=== PATIENT | female | born 1965 | race Caucasian/White ===

== ENCOUNTER 2020-12-07 12:54 | Emergency (ER) | payer OTHER ==
[~2020-12-07] VITALS: Ht 167.6 cm; Wt 102.1 kg
== END 2020-12-07 15:24 | disposition home or self-care (01) ==
LOC: ER 13:12
DX: U07.1 COVID-19 (principal); R06.02 Shortness of breath; R50.9 Fever, unspecified; R05 Cough; E78.5 Hyperlipidemia, unspecified
CPT/HCPCS: 71045; 99282

== ENCOUNTER 2023-10-17 11:12 | Inpatient (IN) | payer OTHER ==
[~2023-10-17] VITALS: Ht 167.6 cm; Wt 102.1 kg
[2023-10-17] MEDS ORDERED: PROPOFOL IV EMULSION 10 MG/ML 20 ML VIAL ONE (12:05)
[2023-10-17] MEDS ORDERED: ONDANSETRON HCL INJ 2MG/ML 2ML 2 MG/ML VIAL ONE (12:05)
[2023-10-17] MEDS ORDERED: SEVOFLURANE INHAL SOLN 250 ML PEN BTL ONE (12:05)
[2023-10-17] MEDS ORDERED: KETOROLAC TROMETHAMINE 30 MG/ML VIAL ONE (12:05)
[2023-10-17] MEDS ORDERED: SUCCINYLCHOLINE CHLORIDE 20 MG/ML 10ML VIAL ONE (12:05)
[2023-10-17] MEDS ORDERED: ROCURONIUM BROMIDE 10 MG/ML 5ML VIAL IV ONE (12:05)
[2023-10-17] MEDS ORDERED: LIDOCAINE HCL 2% LOCAL INJ 5 ML SDV VIAL INJ ONE (12:05)
[2023-10-17] MEDS ORDERED: SODIUM CHLORIDE FLUSH 10 ML SYR IV PRN (12:45)
[2023-10-17 12:57] LABS: BASOPHILS # (AUTO) 0.1 (0.0-0.1); BASOPHILS % 0.3 % (0.0-1.0); EOSINOPHILS # (AUTO) 0.1 (0.0-0.4); EOSINOPHILS % 0.3 % (0.0-6.0); HEMATOCRIT 41.1 % (34.2-44.1); HEMOGLOBIN 13.7 g/dL (12.0-16.0); LYMPHOCYTES # (AUTO) 2.2 (1.0-3.2); LYMPHOCYTES % 12.5 % (18.0-39.1); MEAN CORPUSCULAR HEMOGLOBIN 30.2 pg (28-32); MEAN CORPUSCULAR HGB CONC 33.3 g/dL (31-35); MEAN CORPUSCULAR VOLUME 90.7 fL (81-99); MONOCYTES # (AUTO) 1.4 (0.2-0.8); MONOCYTES % 7.8 % (4.4-11.3); NEUTROPHILS % 78.7 % (38.7-80.0); PLATELET COUNT 293 x10e3/uL (140-360); RED BLOOD COUNT 4.53 x10e6/uL (3.6-5.1); RED CELL DISTRIBUTION WIDTH 12.2 % (11.7-14.4); WHITE BLOOD COUNT 17.79 x10e3/uL (4.8-10.8)
[2023-10-17] MEDS ORDERED: SODIUM CHLORIDE 0.9% 1000ML 1,000 ML IV STA (13:03)
[2023-10-17] MEDS ORDERED: ACETAMINOPHEN 1000 MG/100 ML IV STA (13:03)
[2023-10-17] MEDS ORDERED: IOPAMIDOL 370 MG/ML 100 ML INFUS..BTL INJ ONE (13:07)
[2023-10-17 13:10] LABS: ALBUMIN 3.3 g/dL (3.5-5.0); ALBUMIN/GLOBULIN RATIO 0.8 (0.8-2.0); ANION GAP 15.3 mmol/L (8-16); BILIRUBIN,TOTAL 1.3 mg/dL (0.2-1.2); CALCIUM 9.5 mg/dL (8.4-10.2); CREATININE, SERUM 0.81 mg/dL (0.57-1.11); TOTAL PROTEIN 7.7 g/dL (6.5-8.1)
[2023-10-17 13:12] LABS: POTASSIUM 3.3 mmol/L (3.5-5.1)
[2023-10-17 13:35] LABS: CLARITY,URINE CLOUDY (CLEAR); COLOR,URINE YELLOW (YELLOW)
[2023-10-17 13:36] LABS: BILIRUBIN,URINE MODERATE (NEGATIVE); GLUCOSE, URINE NEGATIVE (NEGATIVE); KETONES,URINE 2+ (NEGATIVE); LEUKOCYTE ESTERASE ,URINE SMALL (NEGATIVE); NITRITE,URINE NEGATIVE (NEGATIVE); PH,URINE 6 (5 - 7); PROTEIN,URINE DIPSTICK 2+ (NEGATIVE)
[2023-10-17 13:42] LABS: RBC,URINE 21-50 /HPF (0-5); WBC,URINE (MAN) >50 /HPF (0-5)
[2023-10-17 13:43] LABS: BACTERIA,URINE MODERATE /HPF; EPITHELIAL CELLS,URINE FEW /LPF; TRANSITIONAL EPI CELLS,URINE FEW
[2023-10-17] MEDS ORDERED: ONDANSETRON HCL INJ 2MG/ML 2ML 2 MG/ML VIAL IV PRN ×2 (14:00→20:00)
[2023-10-17] MEDS: SODIUM CHLORIDE 0.9% 1000ML 1,000 ML IV SCH ×2 (15:30→21:01)
[2023-10-17] MEDS ORDERED: FENTANYL CITRATE/PF 100MCG/2 ML INJ ONE (15:32)
[2023-10-17] MEDS ORDERED: MIDAZOLAM HCL 2 MG/2 ML VIAL ONE (15:32)
[2023-10-17] MEDS ORDERED: CLONIDINE HCL 0.1 MG TAB PO PRN (17:15)
[2023-10-17] MEDS: Morphine 4mg INJECTION 4 MG/ML INJ IV PRN ×2 (18:05→23:40)
[2023-10-17] MEDS ORDERED: BUPIVACAINE HCL 0.5% INJ 30 ML VIAL INJ ONE (18:06)
[2023-10-17] MEDS ORDERED: ACETAMINOPHEN 1000 MG/100 ML 100 ML IV ONE (18:44)
[2023-10-17] MEDS ORDERED: SUGAMMADEX SODIUM 200 MG/2 ML VIAL IV ONE (18:44)
[2023-10-17] MEDS ORDERED: ACETAMINOPHEN 325 MG/10 ML UDC PO PRN (20:00)
[2023-10-17] MEDS: FENTANYL CITRATE/PF 100MCG/2 ML INJ ONE ×4 (20:20→20:40)
[2023-10-17 21:00] VITALS: BP 127/74; PULSE 86; RESP 18; TEMP 98.5; O2SAT 96
[2023-10-17 21:20] VITALS: PULSE 83; RESP 18; O2SAT 93
[2023-10-17] MEDS: HYDROCODONE/APAP 5MG-325MG TAB PO PRN (21:21)
[2023-10-17 21:24] VITALS: BP 127/74; PULSE 86; RESP 18; TEMP 98.5; O2SAT 96
[2023-10-17 23:59] VITALS: BP 113/64; PULSE 89; RESP 18; TEMP 99.1; O2SAT 96
[2023-10-18] VITALS (9 sets, daily range): BP systolic 109–131; BP diastolic 61–74; PULSE 78–107; RESP 18–20; TEMP 98.4–101.1; O2SAT 94–98
[2023-10-18] MEDS: HYDROCODONE/APAP 5MG-325MG TAB PO PRN ×4 (02:22→17:06)
[2023-10-18] MEDS: Morphine 4mg INJECTION 4 MG/ML INJ IV PRN ×2 (05:00→20:41)
[2023-10-18] MEDS: ACETAMINOPHEN 325 MG TAB PO PRN ×2 (05:00→20:41)
[2023-10-18] MEDS: SODIUM CHLORIDE 0.9% 1000ML 1,000 ML IV SCH ×2 (05:02→14:56)
[2023-10-18 06:07] LABS: BASOPHILS # (AUTO) 0.1 (0.0-0.1); BASOPHILS % 0.6 % (0.0-1.0); EOSINOPHILS % 0.2 % (0.0-6.0); HEMATOCRIT 36.1 % (34.2-44.1); LYMPHOCYTES # (AUTO) 0.9 (1.0-3.2); MEAN CORPUSCULAR HEMOGLOBIN 30.1 pg (28-32); MEAN CORPUSCULAR HGB CONC 33.2 g/dL (31-35); MEAN CORPUSCULAR VOLUME 90.5 fL (81-99); MONOCYTES # (AUTO) 0.8 (0.2-0.8); MONOCYTES % 6.5 % (4.4-11.3); NEUTROPHILS # (AUTO) 10.6 (2.1-6.9); NEUTROPHILS % 85.3 % (38.7-80.0); PLATELET COUNT 290 x10e3/uL (140-360); RED BLOOD COUNT 3.99 x10e6/uL (3.6-5.1); RED CELL DISTRIBUTION WIDTH 12.5 % (11.7-14.4); WHITE BLOOD COUNT 12.46 x10e3/uL (4.8-10.8)
[2023-10-18 07:07] LABS: ALBUMIN 2.7 g/dL (3.5-5.0); ALBUMIN/GLOBULIN RATIO 0.7 (0.8-2.0); BILIRUBIN,TOTAL 2.2 mg/dL (0.2-1.2); CALCIUM 8.2 mg/dL (8.4-10.2); CREATININE, SERUM 0.71 mg/dL (0.57-1.11); TOTAL PROTEIN 6.5 g/dL (6.5-8.1)
[2023-10-18] MEDS ORDERED: POTASSIUM CHLORIDE 10MEQ EA PO ONE (16:30)
[2023-10-18] MEDS ORDERED: Vancomycin IV 1 GM in SODIUM CHLORIDE 0.9% 250ML 250 ML IV ONE (20:15)
[2023-10-19] VITALS (13 sets, daily range): BP systolic 105–138; BP diastolic 69–86; PULSE 85–100; RESP 16–18; TEMP 98.4–100.2; O2SAT 93–100
[2023-10-19] MEDS: SODIUM CHLORIDE 0.9% 1000ML 1,000 ML IV SCH ×5 (01:39→20:55)
[2023-10-19] MEDS: Morphine 4mg INJECTION 4 MG/ML INJ IV PRN ×2 (05:06→15:30)
[2023-10-19 05:56] LABS: BASOPHILS # (AUTO) 0.1 (0.0-0.1); BASOPHILS % 0.3 % (0.0-1.0); EOSINOPHILS # (AUTO) 0.2 (0.0-0.4); HEMATOCRIT 33.1 % (34.2-44.1); HEMOGLOBIN 10.9 g/dL (12.0-16.0); LYMPHOCYTES # (AUTO) 1.9 (1.0-3.2); LYMPHOCYTES % 13.3 % (18.0-39.1); MEAN CORPUSCULAR HEMOGLOBIN 30.3 pg (28-32); MEAN CORPUSCULAR HGB CONC 32.9 g/dL (31-35); MEAN CORPUSCULAR VOLUME 91.9 fL (81-99); MONOCYTES # (AUTO) 1.1 (0.2-0.8); MONOCYTES % 7.8 % (4.4-11.3); NEUTROPHILS # (AUTO) 11.2 (2.1-6.9); NEUTROPHILS % 77.1 % (38.7-80.0); PLATELET COUNT 293 x10e3/uL (140-360); RED CELL DISTRIBUTION WIDTH 12.3 % (11.7-14.4); WHITE BLOOD COUNT 14.54 x10e3/uL (4.8-10.8)
[2023-10-19 06:36] LABS: ANION GAP 12.1 mmol/L (8-16); CALCIUM 8.5 mg/dL (8.4-10.2); CREATININE, SERUM 0.67 mg/dL (0.57-1.11)
[2023-10-19 06:37] LABS: ALBUMIN 2.5 g/dL (3.5-5.0); BILIRUBIN,DIRECT 0.6 mg/dL (0.0-0.5); BILIRUBIN,TOTAL 0.9 mg/dL (0.2-1.2); TOTAL PROTEIN 6.3 g/dL (6.5-8.1)
[2023-10-19 06:52] LABS: POTASSIUM 3.1 mmol/L (3.5-5.1)
[2023-10-19] MEDS: HYDROCODONE/APAP 5MG-325MG TAB PO PRN (08:50)
[2023-10-19] MEDS ORDERED: Vancomycin IV 1 GM in SODIUM CHLORIDE 0.9% 250ML 250 ML IV ONE (11:45)
[2023-10-19] MEDS ORDERED: DOCUSATE SODIUM 100 MG CAP PO PRN (12:30)
[2023-10-19] MEDS ORDERED: TRAMADOL HCL 50 MG TAB PO PRN (12:30)
[2023-10-19] MEDS ORDERED: POTASSIUM CHLORIDE 10MEQ EA PO ONE (13:15)
[2023-10-19] MEDS ORDERED: BISACODYL 5 MG TAB EC PO ONE (13:15)
[2023-10-19] MEDS ORDERED: BISACODYL 10 MG SUPP PR ONE (18:00)
[2023-10-19] MEDS: ACETAMINOPHEN 325 MG TAB PO PRN (18:09)
[2023-10-19] MEDS: SIMETHICONE 80 MG CHEW PO PRN (18:09)
[2023-10-20] VITALS (8 sets, daily range): BP systolic 115–135; BP diastolic 60–77; PULSE 69–89; RESP 17–18; TEMP 97.5–98.6; O2SAT 95–99
[2023-10-20] MEDS: ACETAMINOPHEN 325 MG TAB PO PRN (02:34)
[2023-10-20 06:24] LABS: BASOPHILS # (AUTO) 0.1 (0.0-0.1); BASOPHILS % 0.3 % (0.0-1.0); EOSINOPHILS # (AUTO) 0.1 (0.0-0.4); EOSINOPHILS % 0.7 % (0.0-6.0); HEMATOCRIT 35.2 % (34.2-44.1); LYMPHOCYTES # (AUTO) 1.8 (1.0-3.2); LYMPHOCYTES % 10.2 % (18.0-39.1); MEAN CORPUSCULAR HEMOGLOBIN 31.1 pg (28-32); MEAN CORPUSCULAR HGB CONC 34.1 g/dL (31-35); MEAN CORPUSCULAR VOLUME 91.2 fL (81-99); MONOCYTES # (AUTO) 1.2 (0.2-0.8); MONOCYTES % 6.6 % (4.4-11.3); NEUTROPHILS # (AUTO) 14.5 (2.1-6.9); NEUTROPHILS % 81.4 % (38.7-80.0); PLATELET COUNT 364 x10e3/uL (140-360); RED BLOOD COUNT 3.86 x10e6/uL (3.6-5.1); RED CELL DISTRIBUTION WIDTH 12.4 % (11.7-14.4); WHITE BLOOD COUNT 17.77 x10e3/uL (4.8-10.8)
[2023-10-20 06:47] LABS: ANION GAP 14.4 mmol/L (8-16); CALCIUM 9.2 mg/dL (8.4-10.2); CREATININE, SERUM 0.64 mg/dL (0.57-1.11)
[2023-10-20 06:51] LABS: POTASSIUM 3.4 mmol/L (3.5-5.1)
[2023-10-20] MEDS: ONDANSETRON HCL 4 MG ORAL DISINTEGRATING TAB PO PRN ×2 (10:13→22:27)
[2023-10-20] MEDS: SIMETHICONE 80 MG CHEW PO PRN (10:13)
[2023-10-20] MEDS: Morphine 4mg INJECTION 4 MG/ML INJ IV PRN ×2 (10:14→22:25)
[2023-10-20] MEDS ORDERED: CALCIUM CARBONATE 500 MG CHEWABLE TABS PO PRN (10:30)
[2023-10-20] MEDS: SODIUM CHLORIDE 0.9% 1000ML 1,000 ML IV SCH (14:15)
[2023-10-20] MEDS: LACTOBACILLUS ACIDOPHILUS CAPSULE PO SCH (20:30)
[2023-10-21] VITALS (7 sets, daily range): BP systolic 121–147; BP diastolic 68–72; PULSE 78–95; RESP 19–20; TEMP 98–99; O2SAT 97–98
[2023-10-21 05:49] LABS: ANION GAP 11.8 mmol/L (8-16); CALCIUM 8.7 mg/dL (8.4-10.2); CREATININE, SERUM 0.57 mg/dL (0.57-1.11)
[2023-10-21 05:56] LABS: POTASSIUM 2.8 mmol/L (3.5-5.1)
[2023-10-21 06:11] LABS: BASOPHILS # (AUTO) 0.1 (0.0-0.1); BASOPHILS % 0.4 % (0.0-1.0); EOSINOPHILS # (AUTO) 0.4 (0.0-0.4); EOSINOPHILS % 3.1 % (0.0-6.0); HEMATOCRIT 32.4 % (34.2-44.1); HEMOGLOBIN 10.7 g/dL (12.0-16.0); LYMPHOCYTES # (AUTO) 2.2 (1.0-3.2); LYMPHOCYTES % 16.8 % (18.0-39.1); MEAN CORPUSCULAR HEMOGLOBIN 30.5 pg (28-32); MEAN CORPUSCULAR VOLUME 92.3 fL (81-99); MONOCYTES # (AUTO) 1.1 (0.2-0.8); MONOCYTES % 8.7 % (4.4-11.3); NEUTROPHILS % 69.8 % (38.7-80.0); PLATELET COUNT 342 x10e3/uL (140-360); RED BLOOD COUNT 3.51 x10e6/uL (3.6-5.1); RED CELL DISTRIBUTION WIDTH 12.6 % (11.7-14.4); WHITE BLOOD COUNT 12.88 x10e3/uL (4.8-10.8)
[2023-10-21] MEDS ORDERED: POTASSIUM CHLORIDE 20 MEQ TAB CR PO ONE (07:45)
[2023-10-21] MEDS: ACETAMINOPHEN 325 MG TAB PO PRN (08:26)
[2023-10-21] MEDS: LACTOBACILLUS ACIDOPHILUS CAPSULE PO SCH (08:27)
[2023-10-21 09:21] LABS: EOSINOPHILS % (MANUAL) 2 % (0-7); LYMPHOCYTES % (MANUAL) 12 % (19-48); MONOCYTES % (MANUAL) 9 % (3.4-9.0); NEUTROPHILS % (MANUAL) 76 % (40-74); PLATELET ESTIMATE ADEQUATE; PLATELET MORPHOLOGY COMMENT NORMAL; RBC MORPHOLOGY COMMENT NORMAL; REACTIVE LYMPHOCYTES 1
[2023-10-21] MEDS: POTASSIUM CHLORIDE 20MEQ/100ML 100 ML IV SCH ×2 (09:45→09:53)
[2023-10-21] MEDS ORDERED: POTASSIUM CHLORIDE 10MEQ EA PO ONE ×2 (12:00→14:00)
[2023-10-21] MEDS ORDERED: ULTRAM 50MG50 MG PO (19:40)
== END 2023-10-21 14:45 | disposition home or self-care (01) | DRG 398 ==
LOC: ER 11:19 → ERHOLD 13:54 → MED/SURG 19:48
PROVIDERS: ADMIT Internal Medicine; ATTEND Internal Medicine
PROC: 0DTJ4ZZ Resection of Appendix, Percutaneous Endoscopic Approach (ICD-10-PCS; principal; 2023-10-17 17:05)
DX: K35.32 Acute appendicitis with perforation, localized peritonitis, and gangrene, without abscess (principal); N39.0 Urinary tract infection, site not specified; D72.829 Elevated white blood cell count, unspecified; B95.1 Streptococcus, group B, as the cause of diseases classified elsewhere; E87.6 Hypokalemia; E78.00 Pure hypercholesterolemia, unspecified; K59.00 Constipation, unspecified; Z20.822 Contact with and (suspected) exposure to COVID-19
CPT/HCPCS: 36415; 74177; 80048; 80053; 80076; 81001; 83605; 83735; 85025; 87040; 87071; 87086; 87205; 88304; 94799; 99252; 99284; J0330; J1885; J2001; J2250; J2270; J2405; J2543; J3480; J7030; J7050; Q0162; Q9967; U0002